=== PATIENT | female | born 1995 | race Hispanic/Latino ===

== ENCOUNTER 2022-05-30 21:36 | Emergency (ER) | payer MEDICAID ==
[~2022-05-30] VITALS: Ht 157.5 cm; Wt 63.0 kg
[~2022-05-30 21:36] MED LIST: IBUP-2071 PO; IRON-10 PO
[2022-05-30 21:53] VITALS: BP 102/67
[2022-05-30] MEDS ORDERED: CYCLOBENZAPRINE HCL 10 MG TABLET PO ONE (22:00)
[2022-05-30] MEDS ORDERED: KETOROLAC 60 MG VIAL (30MG/ML) IM ONE (22:00)
[2022-05-30 22:06] LABS: APPEARANCE,URINE CLOUDY (CLEAR); BILIRUBIN,URINE NEGATIVE (NEGATIVE); COLOR,URINE YELLOW (YELLOW); GLUCOSE, URINE (UA) NEGATIVE (NEGATIVE); KETONES,URINE >=80 mg/dL (NEGATIVE); LEUKOCYTE ESTERASE ,URINE 250 Leu/uL (NEGATIVE); NITRATE,URINE NEGATIVE (NEGATIVE); OCCULT BLOOD,URINE NEGATIVE (NEGATIVE); PROTEIN,URINE 10 mg/dL (NEGATIVE); UROBILINOGEN,URINE 0.2 mg/dL (0.2-1.0)
[2022-05-30 22:14] LABS: MUCUS,URINE FEW LPF (None Seen); SQUAMOUS EPITHELIAL CELL,UR MANY /HPF (0-2)
[2022-05-30] MEDS ORDERED: CEFTRIAXONE 1G VIAL IM ONE (22:30)
[2022-05-30] MEDS ORDERED: PHENAZOPYRIDINE HCL 200 MG TABLET PO ONE (22:30)
[2022-05-30 22:50] LABS: BASOPHILS % (AUTO) 0.4 % (0.0-5.0); HEMATOCRIT 36.2 % (36-48); LYMPHOCYTES % (AUTO) 50.6 % (21.0-51.0); MEAN CORPUSCULAR HEMOGLOBIN 30.2 pg (27.0-33.0); MEAN CORPUSCULAR HGB CONC 34.5 g/dL (32.0-36.0); MEAN CORPUSCULAR VOLUME 87.4 fL (79-99); MONOCYTES % (AUTO) 5.8 % (3.0-13.0); PLATELET COUNT (AUTO) 276 K/uL (130-400); RED BLOOD CELL COUNT(AUTO) 4.14 MIL/uL (4.00-5.50); RED CELL DISTRIBUTION WIDTH 12.1 % (11.0-15.5); WHITE BLOOD COUNT (AUTO) 8.2 K/uL (4.8-10.8)
[2022-05-30] MEDS ORDERED: CYCL10TA16 PO (22:53)
[2022-05-30] MEDS ORDERED: IBUP-2070 PO (22:53)
[2022-05-30] MEDS ORDERED: PHEN-847 PO (22:53)
[2022-05-30] MEDS ORDERED: CEPH500B PO (22:53)
[2022-05-30 23:00] LABS: CREATININE 0.8 mg/dL (0.5-1.5); POTASSIUM 3.6 mmol/L (3.5-5.1)
[2022-05-30 23:04] LABS: ALBUMIN 4.2 g/dL (3.5-5.0); TOTAL PROTEIN, SERUM 7.4 g/dL (6.0-8.3)
== END 2022-05-30 23:27 | disposition home or self-care (01) ==
LOC: EDH 21:36
DX: S16.1XXA Strain of muscle, fascia and tendon at neck level, initial encounter (principal); S29.012A Strain of muscle and tendon of back wall of thorax, initial encounter; S39.012A Strain of muscle, fascia and tendon of lower back, initial encounter; S09.90XA Unspecified injury of head, initial encounter; N39.0 Urinary tract infection, site not specified; V49.49XA Driver injured in collision with other motor vehicles in traffic accident, initial encounter; Y93.89 Activity, other specified; Y92.413 State road as the place of occurrence of the external cause; Y99.8 Other external cause status
CPT/HCPCS: 99284; 70450; 80053; 85025; 87088; 81001; 81025; 36415; 72125; 71250; 74176; 96372 ×2; J0696; J1885

== ENCOUNTER 2023-09-29 09:44 | Emergency (ER) | payer MEDICAID ==
[~2023-09-29] VITALS: Ht 157.5 cm; Wt 60.3 kg
[~2023-09-29 09:44] MED LIST changes: +CEPH500B PO; +CYCL10TA16 PO; +IBUP-2070 PO; +PHEN-847 PO
[2023-09-29] MEDS: IBUPROFEN 600 MG TABLET PO ONE (12:00)
[2023-09-29] MEDS: PREDNISONE 20 MG TABLET PO ONE (12:00)
[2023-09-29] MEDS ORDERED: PRED20TA3 PO (13:26)
[2023-09-29] MEDS ORDERED: IBUP-2070 PO (13:26)
[2023-09-29] MEDS ORDERED: METH-811 PO (13:26)
[2023-09-29 13:39] VITALS: BP 105/62; PULSE 73; RESP 18; O2SAT 98
== END 2023-09-29 13:44 | disposition home or self-care (01) ==
LOC: EDH 09:44
DX: S29.012A Strain of muscle and tendon of back wall of thorax, initial encounter (principal); X58.XXXA Exposure to other specified factors, initial encounter; Y93.89 Activity, other specified; Y92.89 Other specified places as the place of occurrence of the external cause; Y99.8 Other external cause status
CPT/HCPCS: 72070; 81025